=== PATIENT | female | born 1985 | race Two or more races ===

== ENCOUNTER 2016-12-07 06:55 | Day surgery (SDC) | payer OTHER ==
[2016-12-07] MEDS ORDERED: LIDOCAINE 1% 5 ML SDV ID PRN (07:17)
[2016-12-07] MEDS ORDERED: LR 1,000 ML IV ONE (07:17)
[2016-12-07] MEDS ORDERED: LIDOCAINE 1% 2 ML INJ ONE (07:20)
[2016-12-07] MEDS ORDERED: LIDO/EPI 1% **Not for Epidural 20 ML MDV ONE (07:49)
--- NOTE | 2016-12-07 07:59 | PDANEPAE ---
ANE History of Present Illness 31Fwith abnormal uterine bleeding ANE Past Medical History - Cardiovascular History Hx Hypertension: No Hx Arrhythmias: No Hx Chest Pain: No Hx Coronary Artery / Peripheral Vascular Disease: No Hx CHF / Valvular Disease: No Hx Palpitations: No - Pulmonary History Hx COPD: No Hx Asthma/Reactive Airway Disease: No Hx Recent Upper Respiratory Infection: No Hx Oxygen in Use at Home: No - Neurologic History Hx Cerebrovascular Accident: No Hx Seizures: No Hx Dementia: No - Endocrine History Hx Diabetes: No - Renal History Hx Renal Disorders: No - Liver History Hx Hepatic Disorders: No - Neurological & Psychiatric Hx Hx Neurological and Psychiatric Disorders: No - Cancer History Hx Cancer: No - Congenital Disorder History Hx Congenital Disorders: No - GI History Hx Gastrointestinal Disorders: No - Chronic Pain History Chronic Pain: No ANE Review of Systems - Exercise capacity METS (RN): 4 METS ANE Patient History - Allergies Allergies/Adverse Reactions: Penicillins Allergy (Unknown, Verified 11/23/16 17:05) Sulfa (Sulfonamide Antibiotics) Allergy (Unknown, Verified 11/23/16 17:05) - Home Medications Home Medications: Herbals/Supplements -Info Only 11/23/16 [Last Taken 12/06/16] - NPO status NPO Since - Liquids (Date): 12/06/16 NPO Since - Liquids (Time): 23:00 NPO Since - Solids (Date): 12/06/16 NPO Since - Solids (Time): 18:00 - Anes Hx Anes Hx: no prior problems - Smoking Hx Smoking Status: Never smoked - Alcohol Use Alcohol Use: Rarely - Family Anes Hx Family Anes Hx: none Family Hx Anesthesia Complications: none ANE Labs/Vital Signs - Vital Signs Blood Pressure: 130/93 Heart Rate: 73 Respiratory Rate: 16 O2 Sat (%): 99 Height: 165.1 cm Weight: 63.503 kg ANE Physical Exam - Airway Neck exam: FROM Mallampati Score: Class 1 Mouth exam: normal dental/mouth exam - Pulmonary Pulmonary: no respiratory distress - Cardiovascular Cardiovascular: no murmur, rub, or gallop - ASA Status ASA Status: I ANE Anesthesia Plan Anesthesia Plan: GA w LMA
[2016-12-07] MEDS ORDERED: MIDAZOLAM 2 MG/2 ML VIAL IVP ONE (08:00)
[2016-12-07] MEDS ORDERED: PROPOFOL 200 MG/20 ML VIAL ONE ×2 (08:05→08:54)
[2016-12-07] MEDS ORDERED: fentaNYL 100 MCG/2 ML INJ ONE (08:05)
--- NOTE | 2016-12-07 08:28 | PDHPUP ---
History & Physical Update H&P update statement: This history and physical update is based on an assessment of the patient which was completed after admission or registration (within 24 hours), but prior to the surgery/procedure. H&P update: H&P reviewed & patient examined, no change in patient's condition since H&P completed
[2016-12-07] MEDS ORDERED: LR 500 ML IV PRN (09:09)
[2016-12-07] MEDS ORDERED: HYDROCODONE/APAP 5/325 TAB PO PRN (09:09)
[2016-12-07] MEDS ORDERED: ONDANSETRON 4 MG/2 ML VIAL IVP PRN (09:09)
[2016-12-07] MEDS ORDERED: HYDROmorphONE/DILAUDID 1 MG/ML SYR IVP PRN (09:09)
[2016-12-07] MEDS ORDERED: NALOXONE HCL 0.4 MG/ML INJ IVP PRN (09:09)
[2016-12-07] MEDS ORDERED: OXYCODONE/APAP 5/325 TAB PO PRN (09:09)
[2016-12-07] MEDS ORDERED: fentaNYL 100 MCG/2 ML INJ IVP PRN (09:09)
[2016-12-07] MEDS ORDERED: ACETAMINOPHEN 500 MG TAB PO PRN (09:09)
[2016-12-07] MEDS ORDERED: PROMETHAZINE HCL 25 MG/ML INJ IVP PRN (09:09)
[2016-12-07] MEDS ORDERED: ALBUTEROL 3 ML DEYVIAL IH PRN (09:09)
--- NOTE | 2016-12-07 09:31 | POSTANESTH ---
Post Anesthetic Evaluation Cardiovascular Status: Normal, Stable Respiratory Status: Normal, Stable Level of Consciousness/Mental Status: Can Participate in Eval Pain Control: Adequate, Prn Tx Ordered Nausea/Vomiting Control: Adequate, Prn Tx Ordered Complications Possibly Related to Anesthesia: None Noted
--- NOTE | 2016-12-07 10:44 | POSTOPPROG ---
Post Op Note Date of Operation: 12/07/16 Surgeon: Vicky Germain
[2016-12-07 10:53] VITALS: BP 129/80; PULSE 54; RESP 15; TEMP 98.1; O2SAT 98
--- NOTE | 2016-12-07 11:06 | POSTOPPROG ---
Post Op Note Date of Operation: 12/07/16 Surgeon: Vicky Germain Anesthesiologist: Noble Aguilar Anesthesia: LMA Pre-op Diagnosis: DUB,endometrial polyps Post-op Diagnosis: DUB, endometrial polyps Procedure: H/S polypectomy, D&C Findings: endometrial polyps Inf/Abcess present in the surg proc area at time of surgery?: No EBL: Minimal Specimen(s): endometrial tissue
--- NOTE | 2016-12-07 12:28 | GOP ---
[f rep st] OPERATIVE REPORT DATE OF OPERATION: SURGEON: Vicky Germain MD ANESTHESIA: General with LMA. ANESTHESIOLOGIST: Dr. Deion Aguilar. PREOPERATIVE DIAGNOSIS: 1. Dysfunctional uterine bleeding. 2. Endometrial polyps. POSTOPERATIVE DIAGNOSIS: 1. Dysfunctional uterine bleeding. 2. Endometrial polyps. PROCEDURE PERFORMED: Hysteroscopic polypectomy and dilation and curettage. FINDINGS: Two distinct endometrial polyps with otherwise thick endometrial tissue. Normal tubal os tia, and normal endocervix. ESTIMATED BLOOD LOSS: Minimal. INDICATIONS: Patient is a 31-year-old G0, who has been on control pills long-term. She stopp ed over 1-2 years ago and has had problematic bleeding with very heavy menstrual cycles and ultrasou nd sonohysterogram done last month showed submucosal filling defect, most likely 2 distinct polyps, and the patient desires definitive treatment. She is currently not using anything for control and is abstaining from sexual activity and is willing to proceed with an HCG test which i s negative. DESCRIPTION OF PROCEDURE: With informed consent signed, patient taken to the operating room and jordan yasmeen under a general anesthesia. Placed in a low dorsal lithotomy position, prepped and draped in th e usual sterile fashion. Tenaculum placed on the anterior lip of the cervix. Cervix dilated to 9 m m. Hysteroscope placed using normal saline as a filling medium and findings as noted above. [facility] and [employer] morcellator blade placed into the uterine cavity and resection of the polyps done. At that same time, a D and C like procedure was done with the morcellator removing all the e ndometrial tissue. Pictures were taken of the before and after. Once everything was completely rem ca, the hysteroscope removed and net fluid deficit was 200 cc. The patient placed in a supine pos ition, awakened in the operating room, taken to the recovery room in a stable condition. Tolerated the procedure well. COMPLICATIONS: None. /[id number]/MODL
== END 2016-12-07 10:45 | disposition home or self-care (01) ==
LOC: FSGY 06:55
PROVIDERS: ATTEND Obstetrics & Gynecology Gynecology
PROC: 0UDB8ZX Extraction of Endometrium, Via Natural or Artificial Opening Endoscopic, Diagnostic (ICD-10-PCS; principal; 2016-12-07 08:15)
PROC: 0UB98ZX Excision of Uterus, Via Natural or Artificial Opening Endoscopic, Diagnostic (ICD-10-PCS; principal; 2016-12-07 08:15)
DX: N84.0 Polyp of corpus uteri (principal); N93.8 Other specified abnormal uterine and vaginal bleeding
CPT/HCPCS: 58558; C1782; J2250; J2704; J3010

== ENCOUNTER → 2018-06-06 | Outpatient (CLI) | payer MEDICAID | LOC: FIMAGING 09:04 | DX: N93.8 Other specified abnormal uterine and vaginal bleeding (principal) ==

== ENCOUNTER → 2018-07-10 | Outpatient (CLI) | payer MEDICAID ==
[~2018-07-10] MED LIST: GADOBUTROL 10 ML VIAL IVP ONE
== END ==
LOC: FIMAGING 19:22
PROVIDERS: ATTEND Obstetrics & Gynecology
DX: R19.04 Left lower quadrant abdominal swelling, mass and lump (principal); N83.201 Unspecified ovarian cyst, right side
CPT/HCPCS: A9585